=== PATIENT | male | born 1945 | race Caucasian/White ===

== ENCOUNTER → 2018-04-18 | Outpatient (CLI) | payer MEDICARE ==
[~2018-04-18] MED LIST: Adult Low Dose81 MG PO; Diltiazem ER240 MG PO; FISH1000 PO; GLIP10 PO; Hydrochlorothia25 MG PO; METF500C PO; METO100ER PO; Multiple Vitam1 EAC1 PO; Zestril40 MG PO
== END | disposition home or self-care (01) ==
LOC: LAB SHORT 12:09 → PLD 12:09
DX: D48.5 Neoplasm of uncertain behavior of skin (principal)
CPT/HCPCS: 88305

== ENCOUNTER → 2018-10-23 | Outpatient (CLI) | payer MEDICARE | END | disposition home or self-care (01) | LOC: PLD 11:41 → LAB SHORT 11:41 | DX: D22.4 Melanocytic nevi of scalp and neck (principal) | CPT/HCPCS: 88305 ==

== ENCOUNTER → 2020-06-18 | Outpatient (CLI) | payer MEDICARE, OTHER | END | disposition home or self-care (01) | LOC: LAB SHORT 15:40 → PLD 15:40 | DX: D48.5 Neoplasm of uncertain behavior of skin (principal); C44.619 Basal cell carcinoma of skin of left upper limb, including shoulder; L57.0 Actinic keratosis; L81.4 Other melanin hyperpigmentation; Z88.8 Allergy status to other drugs, medicaments and biological substances | CPT/HCPCS: 88305 ==

== ENCOUNTER → 2020-07-15 | Outpatient (CLI) | payer MEDICARE, OTHER | END | disposition home or self-care (01) | LOC: LAB SHORT 14:41 | DX: D48.5 Neoplasm of uncertain behavior of skin (principal) | CPT/HCPCS: 88305 ==

== ENCOUNTER → 2020-09-29 | Outpatient (CLI) | payer MEDICARE, OTHER | LOC: LAB SHORT 14:54 → LAB 14:54 | DX: D48.5 Neoplasm of uncertain behavior of skin (principal); R23.4 Changes in skin texture; L57.0 Actinic keratosis | CPT/HCPCS: 88305 ==

== ENCOUNTER → 2021-12-07 | Outpatient (CLI) | payer MEDICARE, OTHER | END | disposition home or self-care (01) | LOC: LAB SHORT 07:50 | DX: C44.629 Squamous cell carcinoma of skin of left upper limb, including shoulder (principal) | CPT/HCPCS: 88305 ==

== ENCOUNTER → 2022-12-12 | Outpatient (CLI) | payer MEDICARE, OTHER | LOC: LAB SHORT 15:17 → PLD 15:17 | DX: C44.622 Squamous cell carcinoma of skin of right upper limb, including shoulder (principal); D48.5 Neoplasm of uncertain behavior of skin | CPT/HCPCS: 88305 ==

== ENCOUNTER → 2022-12-28 | Outpatient (CLI) | payer MEDICARE, OTHER | END | disposition home or self-care (01) | LOC: LAB 08:33 → LAB SHORT 08:33 | DX: L08.0 Pyoderma (principal) | CPT/HCPCS: 87070; 87205 ==

== ENCOUNTER → 2023-07-18 | Outpatient (CLI) | payer MEDICARE, OTHER | END | disposition home or self-care (01) | LOC: LAB 08:29 → LAB SHORT 08:29 | DX: D04.4 Carcinoma in situ of skin of scalp and neck (principal) | CPT/HCPCS: 88305 ==

== ENCOUNTER → 2023-07-27 | Outpatient (CLI) | payer MEDICARE, OTHER | LOC: LAB SHORT 10:17 → LAB EV 10:17 | DX: C44.42 Squamous cell carcinoma of skin of scalp and neck (principal) ==

== ENCOUNTER 2024-04-24 18:36 | Emergency (ER) | payer MEDICARE, OTHER ==
[~2024-04-24] VITALS: Ht 175.3 cm; Wt 81.2 kg
[2024-04-24] MEDS ORDERED: Dextrose 50% 50 ML Syringe IV PRN (18:50)
[2024-04-24] MEDS ORDERED: Dextrose 50% 50 ML Vial IV PRN (18:55)
[2024-04-24 19:29] LABS: BASOPHILS ABSOLUTE AUTO 0.08 K/mm3 (0.00-0.23); BASOPHILS PERCENT AUTO 1 % (0-2); EOSINOPHILS ABSOLUTE AUTO 0.32 K/mm3 (0.00-0.68); EOSINOPHILS PERCENT AUTO 5 % (0-6); Hematocrit 46.1 % (37.0-53.0); Hemoglobin 15.9 g/dL (13.5-17.5); IMMATURE GRAN ABSOLUTE AUTO 0.03 K/mm3 (0.00-0.10); IMMATURE GRAN PERCENT AUTO 0 % (0-1); LYMPHOCYTES PERCENT AUTO 43 % (21-46); MONOCYTES ABSOLUTE AUTO 0.43 K/mm3 (0.16-1.47); MONOCYTES PERCENT AUTO 6 % (4-13); Mean Corpuscular HGB 29.7 pg (26.0-34.0); Mean Corpuscular HGB Conc 34.5 g/dL (31.5-36.5); Mean Corpuscular Volume 86 fL (80-100); Mean Platelet Volume 11.4 fL (9.1-12.4); NEUTROPHILS ABSOLUTE AUTO 3.07 K/mm3 (1.96-9.15); NEUTROPHILS PERCENT AUTO 45 % (41-73); Platelet Count 114 K/mm3 (150-400); RDW Coefficient Variation 13.6 % (11.7-14.2); RDW Standard Deviation 42.8 fL (35.1-46.3); Red Blood Cell Count 5.35 M/mm3 (4.30-5.90); White Blood Cell Count 6.83 K/mm3 (4.00-11.30)
[2024-04-24 19:31] LABS: Albumin/Globulin Ratio 1.2 (0.8-1.8); Bilirubin, Total 0.7 mg/dL (0.1-1.0); Bun/Creatinine Ratio 18.7 (12.0-20.0); Calcium, Blood 9.2 mg/dL (8.5-10.1); Creatinine, Blood 1.55 mg/dL (0.60-1.20); Globulin, Blood 3.4 g/dL (2.2-4.0); Potassium, Blood 3.4 mmol/L (3.5-5.5); Total Protein, Blood 7.4 g/dL (6.4-8.2)
[2024-04-24] MEDS ORDERED: Dextrose 50% 50 ML Vial ONE (23:55)
[2024-04-25 01:15] VITALS: BP 123/89
== END 2024-04-25 01:38 | disposition home or self-care (01) ==
LOC: ER 18:36
PROVIDERS: Student in an Organized Health Care Education/Training Program
DX: T38.3X1A Poisoning by insulin and oral hypoglycemic [antidiabetic] drugs, accidental (unintentional), initial encounter (principal); E11.9 Type 2 diabetes mellitus without complications; Z79.82 Long term (current) use of aspirin; Z79.84 Long term (current) use of oral hypoglycemic drugs; Z87.891 Personal history of nicotine dependence
CPT/HCPCS: 80053; 82947; 85025; 99284; J7799

== ENCOUNTER 2024-05-14 08:26 | Day surgery (SDC) | payer OTHER ==
[~2024-05-14] VITALS: Ht 175.3 cm; Wt 82.4 kg
[~2024-05-14 08:26] MED LIST changes: +Balanced Salt Epinephrine Irrigation Solution 500 mL IR SCH; +Lidocaine HCl/Pf 1% 5 ML VIAL XX SCH; +Moxifloxacin HCL 0.5 MG/0.1 ML 0.4MLSYR LEFTEYE SCH; +PHENYLEPHRINE\\TROPICAMIDE\\TETRACAINE OPHTHALMIC DILATING SOLN LEFTEYE PRN; +Povidone-Iodine 450 DROP/30 ML Solution LEFTEYE SCH; +Povidone-Iodine 450 DROP/30 ML Solution ONE; +Tetracaine HCl/Pf 0.5% Opth Soln 4 ml ONE
[2024-05-14] MEDS ORDERED: Diazepam 5 MG Tab ONE (08:55)
[2024-05-14] MEDS ORDERED: Diazepam 2 MG Tab ONE ×2 (08:55→09:32)
--- NOTE | 2024-05-14 09:00 | NUR ---
05/14/24 0900 Taylor Portillo 0859: ANXIETY: "5 OR 6" OUT OF TEN
[2024-05-14] MEDS ORDERED: PRADAXA PO (09:09)
[2024-05-14] MEDS ORDERED: INSULANPEN (09:13)
[2024-05-14] MEDS ORDERED: LOSA25 (09:14)
[2024-05-14] MEDS ORDERED: INSULANI (09:14)
[2024-05-14] MEDS ORDERED: NEBI10 PO (09:15)
[2024-05-14 10:14] VITALS: BP 168/89
--- NOTE | 2024-05-14 10:33 | NUR ---
05/14/24 1033 Kim Cruz D/C INSTRUCTIONS GIVEN TO PT & PT'S NIECE, TONI. UNDERSTANDING VERBALIZED. PT PLACED MACEDO IN EAR & NOW HAS BILAT MACEDO'S IN PLACE. PT HAS ALL BELONGINGS W/ HIM. PT WHEELED TO PRIVATE VEHICLE, STEADY GAIT NOTED UPON TRANSFER. PT LEAVING W/ EYE KIT & D/C PACKET. NO VISIBLE SIGNS OF DISTRESS NOTED.
== END 2024-05-14 10:28 | disposition home or self-care (01) ==
LOC: ORSCSDS 08:26
PROVIDERS: Student in an Organized Health Care Education/Training Program
PROC: 08RK3JZ Replacement of Left Lens with Synthetic Substitute, Percutaneous Approach (ICD-10-PCS; principal; 2024-05-14 10:00)
DX: E11.36 Type 2 diabetes mellitus with diabetic cataract (principal); H25.812 Combined forms of age-related cataract, left eye; I10 Essential (primary) hypertension; H52.202 Unspecified astigmatism, left eye; Z96.1 Presence of intraocular lens; Z79.84 Long term (current) use of oral hypoglycemic drugs; Z79.4 Long term (current) use of insulin; Z79.85 Long-term (current) use of injectable non-insulin antidiabetic drugs; Z79.899 Other long term (current) drug therapy
CPT/HCPCS: 82947; A9270; V2632